=== PATIENT | male | born 1940 | race Caucasian/White ===

== ENCOUNTER 2021-08-07 05:57 | Inpatient (IN) | payer OTHER, BC ==
[2021-08-03 12:15] VITALS: BMI 27.9
[~2021-08-07 05:57] MED LIST: VANCOMYCIN 1,000 MG VIAL (RESTRICTED TO ID ONLY) IVPB ONE
[2021-08-07] MEDS: CELECOXIB 200 MG CAPSULE PO ONE ×2 (07:10→12:36)
[2021-08-07] MEDS ORDERED: ceFAZolin SODIUM 1 GM VIAL ONE ×3 (07:13→16:52)
[2021-08-07] MEDS ORDERED: VANCOMYCIN 1,000 MG VIAL (RESTRICTED TO ID ONLY) ONE (07:13)
[2021-08-07] MEDS ORDERED: PROPOFOL 20 ML ONE (07:27)
[2021-08-07] MEDS ORDERED: MIDAZOLAM HCL 2 MG/2 ML SINGLE DOSE VIAL ONE (07:36)
[2021-08-07] MEDS ORDERED: BUPIVACAINE HCL 50 ML ONE ×2 (07:36)
[2021-08-07] MEDS ORDERED: SODIUM CHLORIDE 0.9% P/F 10 ML VIAL IJ ONE ×2 (07:36→07:40)
[2021-08-07] MEDS ORDERED: BUPIVACAINE LIPOSOME/PF (EXPAREL) 266 MG/20 ML VIAL ONE (07:36)
[2021-08-07] MEDS ORDERED: ONDANSETRON 4 MG/2 ML VIAL IVPUSH PRN ×2 (07:57→09:52)
[2021-08-07] MEDS ORDERED: MAG HYDROX/AL HYDROX/SIMETH 30 ML UNIT-DOSE CUP PO PRN (07:57)
[2021-08-07] MEDS ORDERED: LACTATED RINGERS SOLUTION 1,000 ML IV SCH (08:00)
[2021-08-07] MEDS ORDERED: VANCOMYCIN 1,000 MG VIAL (RESTRICTED TO ID ONLY) IVPB ONE (09:09)
[2021-08-07] MEDS ORDERED: CEFAZOLIN 2 GM in DEXTROSE 5%-WATER - 50 ML IVPB ONE (09:30)
[2021-08-07] MEDS ORDERED: TRANEXAMIC ACID 1000 MG/10 ML VIAL IVPUSH ONE (09:30)
[2021-08-07] MEDS: FERROUS SO4 325 MG TABLET (FP) PO SCH (12:36)
[2021-08-07] MEDS: MULTIVITAMINS (DAILY MVI) TABLET (FP) PO SCH (12:37)
[2021-08-07] MEDS: SENNOSIDES/DOCUSATE COMBO (SENNA PLUS) TABLET (UD) PO SCH ×2 (12:37→21:15)
[2021-08-07] MEDS: ACETAMINOPHEN 500 MG TABLET (FP) PO SCH ×3 (12:37→21:14)
[2021-08-07] MEDS: PANTOPRAZOLE 40 MG TABLET PO SCH (12:37)
[2021-08-07] MEDS: oxyCODONE HCL 5 MG TABLET PO PRN ×2 (13:55→21:12)
[2021-08-07] MEDS ORDERED: DEXTROSE 5%-WATER - 50 ML IVPB ONE (16:53)
[2021-08-07] MEDS: CEFAZOLIN 2 GM in DEXTROSE 5%-WATER - 50 ML IVPB SCH (16:58)
[2021-08-07] MEDS ORDERED: ROSUVASTATIN CA 20 MG TABLET PO SCH (22:00)
[2021-08-08] MEDS ORDERED: ceFAZolin SODIUM 1 GM VIAL ONE (00:18)
[2021-08-08] MEDS ORDERED: DEXTROSE 5%-WATER - 50 ML IVPB ONE (00:18)
[2021-08-08] MEDS: CEFAZOLIN 2 GM in DEXTROSE 5%-WATER - 50 ML IVPB SCH (00:23)
[2021-08-08] MEDS: ACETAMINOPHEN 500 MG TABLET (FP) PO SCH ×2 (05:16→09:01)
[2021-08-08] MEDS: oxyCODONE HCL 5 MG TABLET PO PRN ×2 (05:17→08:45)
[2021-08-08 06:41] VITALS: BP 136/81; PULSE 93; TEMP 97.6
[2021-08-08] MEDS ORDERED: ASPIRIN 325 MG TABLET PO SCH (08:00)
[2021-08-08] MEDS: PANTOPRAZOLE 40 MG TABLET PO SCH (09:02)
[2021-08-08] MEDS: SENNOSIDES/DOCUSATE COMBO (SENNA PLUS) TABLET (UD) PO SCH (09:03)
[2021-08-08] MEDS: MULTIVITAMINS (DAILY MVI) TABLET (FP) PO SCH (09:03)
[2021-08-08] MEDS: FERROUS SO4 325 MG TABLET (FP) PO SCH (09:03)
[2021-08-08 15:24] LABS: HEMATOCRIT 37.7 % (35.4-49); HEMOGLOBIN 12.9 GM/dL (11.7-16.9); MCH 30.4 pg (25.7-33.7); MCHC 34.1 g/dl (32.0-35.9); MEAN PLT VOLUME 8.6 fl (7.5-11.1); PLATELET COUNT 179 10^3/uL (134-434); RBC 4.24 M/mm3 (4.00-5.60); RDW 14.7 % (11.9-15.9); WHITE BLOOD COUNT 6.9 K/mm3 (4.0-10.0)
== END 2021-08-08 12:18 | disposition home or self-care (01) | DRG 470 ==
LOC: FM/S 05:57
PROVIDERS: ADMIT Orthopaedic Surgery; ATTEND Orthopaedic Surgery
PROC: 8E0Y0CZ Robotic Assisted Procedure of Lower Extremity, Open Approach (ICD-10-PCS; 2021-08-07)
PROC: 0SRD0JZ Replacement of Left Knee Joint with Synthetic Substitute, Open Approach (ICD-10-PCS; principal; 2021-08-07 08:25)
DX: M17.12 Unilateral primary osteoarthritis, left knee (principal)
CPT/HCPCS: 36415; 73560-TC-LT-FY; 85027; 94760; 97010-GP; 97116-GP; 97162-GP